=== PATIENT | female | born 1970 | race American Indian/Alaskan Native ===

== ENCOUNTER 2017-02-21 16:47 | Inpatient (IN) | payer MEDICAID, OTHER ==
[2017-02-21 18:17] LABS: Basophils % (Auto) 0.2 % (0.0-1.8); Eosinophils % (Auto) 0.5 % (0.0-4.3); Hematocrit 35.8 % (30.3-42.9); Hemoglobin 11.8 gm/dl (10.1-14.3); Mean Corpuscular HGB Conc 33 % (30-34); Mean Corpuscular Hemoglobin 31 pg (28-32); Mean Corpuscular Volume 93 fl (79-97); Platelet Count 297 K/mm3 (140-440); Red Blood Count 3.84 M/mm3 (3.65-5.03); Red Cell Distribution Width 15.8 % (13.2-15.2); White Blood Count 8.2 K/mm3 (4.5-11.0)
[2017-02-21 18:35] LABS: Anion Gap 20 mmol/L; BUN/Creatinine Ratio 15; Blood Urea Nitrogen 12 mg/dL (7-17); Calcium 9.3 mg/dL (8.4-10.2); Carbon Dioxide 28 mmol/L (22-30); Chloride 101.8 mmol/L (98-107); Glucose 124 mg/dL (65-100); Potassium 4.3 mmol/L (3.6-5.0); Sodium 145 mmol/L (137-145)
[2017-02-21] MEDS ORDERED: TYLENOL PO ONE (20:26)
[2017-02-21] MEDS ORDERED: COREG PO ONE (21:15)
[2017-02-21] MEDS ORDERED: ZESTRIL PO ONE (21:15)
[2017-02-21] MEDS ORDERED: NORVASC PO ONE (21:16)
[2017-02-21] MEDS ORDERED: NORMODYNE PO ONE (21:16)
[2017-02-21] MEDS ORDERED: CATAPRES PO ONE (21:17)
[2017-02-21] MEDS ORDERED: TENORMIN PO ONE (21:17)
--- NOTE | 2017-02-21 23:54 | XRay Report ---
FINAL REPORT PROCEDURE: XR CHEST 1V AP TECHNIQUE: Chest radiograph anteroposterior view. CPT 37353 HISTORY: cp, htn COMPARISON: No prior studies are available for comparison. FINDINGS: Heart: Moderate to severe cardiomegaly is noted. The cardiac outline is suggestive of pericardial effusion.. Mediastinum/Vessels: Normal. Lungs/Pleural space: Lungs are hyperinflated. There is moderate degree pulmonary venous congestion. No confluent infiltrates or mass lesions are obvious. Bilateral lower lungs are obscured by cardiac shadow.. Bony thorax: No acute osseous abnormality. Life support devices: None. IMPRESSION: Cardiomegaly with findings suggestive of pericardial effusion. Moderate degree pulmonary venous congestion..
--- NOTE | 2017-02-21 23:59 | Cat Scan Report ---
FINAL REPORT PROCEDURE: CT HEAD/BRAIN WO CON TECHNIQUE: Computerized tomography of the head was performed without contrast material. HISTORY: left arm numbness, htn COMPARISON: No prior studies are available for comparison. FINDINGS: Skull and scalp: Normal. Paranasal sinuses: Normal. Ventricles and subarachnoid spaces: Normal. Cerebrum: No evidence of hemorrhage, acute infarction or mass . Cerebellum and brainstem: No evidence of hemorrhage, acute infarction or mass. Vasculature: Normal. Comments: None. IMPRESSION: Normal Examination
--- NOTE | 2017-02-22 00:59 | Emergency Department Report ---
ED Chest Pain HPI - General Chief Complaint: Chest Pain Stated Complaint: CHEST PAIN Time Seen by Provider: 02/21/17 22:16 Source: patient, EMS, old records reviewed (no previous [facility] record) Mode of arrival: Stretcher Limitations: No Limitations - History of Present Illness Initial Comments: 46-year-old female with a past medical history of hypertension and CAD with stent placement presents to the hospital with complaints of chest pain or shortness of breath. Patient did not take her blood pressure medicine this morning because she was running around and performing errands. While shopping she developed some left arm numbness that then radiated to her anterior and left chest. She described it as a sharp sensation in her chest. Patient also having worsening shortness of breath with exertion, orthopnea, and PND. Patient received nitroglycerin 2 prior to arrival with some decrease in her chest pain. She denies headache, nausea, vomiting, or diaphoresis. Patient typically goes to [facility] and [facility] and has not been here since 2007 when she was transferred to [place] for her stent. She reports her last stress test was in 2015. No reports of recent travel, calf tenderness, or edema. Patient does complain of cough productive of yellow sputum and bilateral rib pain with coughing. Severity scale (0 -10): 0 - Related Data Allergies Allergy/AdvReac Type Severity Reaction Status Date / Time No Known Allergies Allergy Unverified 02/21/17 16:50 Heart Score - HEART Score History: Slightly suspicious EKG: Non-specific Age: 45-65 Risk factors: > 3 risk factors or hx of atherosclerotic disease Troponin: < normal limit HEART Score: 4 ED Review of Systems ROS: Stated complaint: CHEST PAIN Other details as noted in HPI Comment: All other systems reviewed and negative Other: Constitutional: No fevers chills Eyes: No eye pain visual changes ENT: No ear pain or throat pain Neck: Denies pain Respiratory: + cough with yellow sputum Cardiovascular: Denies palpitations, syncope GI: Denies abdominal pain, nausea, vomiting, diarrhea : Denies dysuria Musculoskeletal: Denies back pain Skin: Denies rash, lesions, erythema Neurologic: Denies headache, numbness, weakness Psychiatric: Denies suicidal ideation, hallucinations ED Physical Exam - General Limitations: No Limitations - Other Other exam information: General: No limitations, patient is alert in no acute distress Head exam: Atraumatic, normocephalic Eyes exam: Normal appearanc ENT: Moist mucous membrane, normal oropharynx Neck exam: Normal inspection, full range of motion, no meningismus nontender Respiratory exam: Clear to auscultation bilateral, no wheezes, rales, crackles Cardiovascular: Normal rate and rhythm. Reproducible left sternal chest tenderness Abdomen: Soft, nondistended, and nontender, with normal bowel sounds, no rebound, or guarding Extremity: Full range of motion normal inspection no deformity, no calf tenderness or edema Back: Normal Inspection, full range of motion, no tenderness Neurologic: Alert, oriented x3, cranial nerves intact, see NIH stroke scale Psychiatric: normal affect, normal mood Skin: Warm, dry, intact ED Course Vital Signs 02/21/17 02/21/17 02/21/17 16:55 18:07 20:30 Temperature 98.1 F Pulse Rate 90 98 H Respiratory 18 18 18 Rate Blood Pressure Blood Pressure 190/120 240/127 [Right] O2 Sat by Pulse 100 98 Oximetry 02/21/17 02/21/17 02/21/17 22:16 22:23 22:24 Temperature 98 F Pulse Rate 85 70 70 Respiratory 18 Rate Blood Pressure 190/118 190/118 Blood Pressure 190/118 [Right] O2 Sat by Pulse 100 Oximetry 02/22/17 00:39 Temperature 98 F Pulse Rate 60 Respiratory 18 Rate Blood Pressure Blood Pressure 144/85 [Right] O2 Sat by Pulse 99 Oximetry - Reevaluation(s) Reevaluation #1: 02/22/17 01:22 pt was provided her scheduled meds for her BP with reduction in BP. ASA also given. TRAVIS score - Travis Score Age > 65: (0) No Aspirin use within the Past 7 Days: (1) Yes 3 or more CAD Risk Factors: (1) Yes 2 or more Angina events in past 24 hrs: (1) Yes Known CAD with more than 50% Stenosis: (0) No Elevated Cardiac Markers: (0) No ST Deviation Greater than 0.5mm: (0) No TRAVIS Score: 3 ED Medical Decision Making - Lab Data Result diagrams: 02/21/17 17:46 02/21/17 17:46 Lab Results 02/21/17 02/21/17 02/21/17 Range/Units 17:46 17:46 20:03 WBC 8.2 (4.5-11.0) K/mm3 RBC 3.84 (3.65-5.03) M/mm3 Hgb 11.8 (10.1-14.3) gm/dl Hct 35.8 (30.3-42.9) % MCV 93 (79-97) fl MCH 31 (28-32) pg MCHC 33 (30-34) % RDW 15.8 H (13.2-15.2) % Plt Count 297 (140-440) K/mm3 Lymph % (Auto) 37.5 H (13.4-35.0) % [place] % (Auto) 8.4 H (0.0-7.3) % Eos % (Auto) 0.5 (0.0-4.3) % Baso % (Auto) 0.2 (0.0-1.8) % Lymph # 3.1 (1.2-5.4) K/mm3 [place] # 0.7 (0.0-0.8) K/mm3 Eos # 0.0 (0.0-0.4) K/mm3 Baso # 0.0 (0.0-0.1) K/mm3 Seg Neutrophils % 53.4 (40.0-70.0) % Seg Neutrophils # 4.4 (1.8-7.7) K/mm3 Sodium 145 (137-145) mmol/L Potassium 4.3 (3.6-5.0) mmol/L Chloride 101.8 (98-107) mmol/L Carbon Dioxide 28 (22-30) mmol/L Anion Gap 20 mmol/L BUN 12 (7-17) mg/dL Creatinine 0.8 (0.7-1.2) mg/dL Estimated GFR > 60 ml/min BUN/Creatinine Ratio 15 % Glucose 124 H (65-100) mg/dL Calcium 9.3 (8.4-10.2) mg/dL Troponin T < 0.010 < 0.010 (0.00-0.029) ng/mL 02/21/17 Range/Units 22:52 WBC (4.5-11.0) K/mm3 RBC (3.65-5.03) M/mm3 Hgb (10.1-14.3) gm/dl Hct (30.3-42.9) % MCV (79-97) fl MCH (28-32) pg MCHC (30-34) % RDW (13.2-15.2) % Plt Count (140-440) K/mm3 Lymph % (Auto) (13.4-35.0) % [place] % (Auto) (0.0-7.3) % Eos % (Auto) (0.0-4.3) % Baso % (Auto) (0.0-1.8) % Lymph # (1.2-5.4) K/mm3 [place] # (0.0-0.8) K/mm3 Eos # (0.0-0.4) K/mm3 Baso # (0.0-0.1) K/mm3 Seg Neutrophils % (40.0-70.0) % Seg Neutrophils # (1.8-7.7) K/mm3 Sodium (137-145) mmol/L Potassium (3.6-5.0) mmol/L Chloride (98-107) mmol/L Carbon Dioxide (22-30) mmol/L Anion Gap mmol/L BUN (7-17) mg/dL Creatinine (0.7-1.2) mg/dL Estimated GFR ml/min BUN/Creatinine Ratio % Glucose (65-100) mg/dL Calcium (8.4-10.2) mg/dL Troponin T 0.022 (0.00-0.029) ng/mL - EKG Data -: EKG Interpreted by Fl EKG shows normal: sinus rhythm (90), axis (29), QRS complexes (107), ST-T waves (lat t inv) - EKG Data When compared to previous EKG there are: previous EKG unavailable - Radiology Data Radiology results: report reviewed Read by radiology Chest x-ray: Cardiomegaly suggestive of pericardial effusion. Moderate degree of pulmonary venous congestion CT head: Normal - Medical Decision Making Patient's chest pain is reproducible with palpation. Cardiac enzymes negative 3. Chest x-ray has Pulmicort congestion with cardiomegaly suggestive of potential pericardial effusion - Differential Diagnosis CHF, bronchitis, pneumonia, PE, pericardial effusion, AR, stable angina Critical Care Time: No Critical care attestation.: If time is entered above; I have spent that time in minutes in the direct care of this critically ill patient, excluding procedure time. ED Disposition Clinical Impression: Uncontrolled hypertension, Noncompliance with medication regimen, Dyspnea, Pulmonary congestion, Chest pain, Left arm numbness, Cardiomegaly, Hx of heart artery stent Disposition: DC-09 OP ADMIT IP TO THIS HOSP Is pt being admited?: Yes Condition: Stable Time of Disposition: 00:59 (Dr casper/hosp) - Assessment Assessment Interval: Baseline - Level of Consciousness 1a. Level of Consciousness: alert - LOC Questions 1b. LOC Questions: answers correctly - LOC Command 1c. LOC Commands: performs tasks correctly - Best Gaze 2. Best Gaze: normal - Visual 3. Visual: no visual loss - Facial Palsy 4. Facial Palsy: normal symmetrical movement - Motor Arm 5b. Motor Arm Right: no drift 5a. Motor Arm Left: no drift - Motor Leg 6a. Motor Leg Left: no drift 6b. Motor Leg Right: no drift - Limb Ataxia 7. Limb Ataxia: absent - Sensory 8. Sensory: mild/moderate sensory loss (mild decrease sesation left arm compared to right (light touch)) - Best Language 9. Best Language: no aphasia - Dysarthria 10. Dysarthria: normal - Extinction and Inattention 11. Extinction/Inattention: no abnormality - Scoring Total Score: 1 Stroke Severity: Minor Stroke
[2017-02-22] MEDS ORDERED: ASPIRIN PO ONE (01:23)
[2017-02-22 06:41] LABS: Creatine Kinase MB 35.9 ng/mL (0.0-4.0)
[2017-02-22] MEDS ORDERED: FLEXERIL PO PRN (06:55)
--- NOTE | 2017-02-22 09:25 | History and Physical Report ---
<SOPHIE CALL - Last Filed: 02/22/17 12:06> History of Present Illness Date of examination: 02/22/17 Date of admission: 02/22/17 05:17 Chief complaint: Chest pain History of present illness: Patient is a 46 years old of hypertension, coronary artery disease and cardiomyopathy who presented to the Emergency Department complaining of left side chest pain. He states that the pain began yesterday around 3:00PM, after eating dinner, constant left-side chest pain. Patient described the pain as, sharp, pressure and squeezing in her chest; that radiates to the left arm and shoulder.The sharp pain lasted around 1 minute. There is no aggravating or reliving factors. The painful episodes did not increase in intensity or severity during this time. Patient rated her pain level 9/10. She denies nausea, vomiting during these episodes of pain. She experienced shortness of breath, nausea, and diaphoresis during these episodes of pain. She continued to have several episodes of the pain throughout the morning, she decided to come to the emergency department. She had negative stress test a year ago with [place] [facility]. Past History Past Medical History: CAD, hypertension, other ( cardiomyopathy) Past Surgical History: denies: No surgical history Social history: smoking. denies: alcohol abuse Family history: hypertension Medications and Allergies Allergies Allergy/AdvReac Type Severity Reaction Status Date / Time No Known Allergies Allergy Unverified 02/21/17 16:50 Home Medications Medication Instructions Recorded Confirmed Last Taken Type Aspirin 81 mg PO DAILY 02/22/17 02/22/17 Unknown History AtorvaSTATin [Lipitor] 40 mg PO QHS 02/22/17 02/22/17 Unknown History Carvedilol 25 mg PO DAILY 02/22/17 02/22/17 Unknown History Cyclobenzaprine [Flexeril] 10 mg PO TID PRN 02/22/17 02/22/17 Unknown History Furosemide [Lasix] 40 mg PO BID 02/22/17 02/22/17 1 Day Ago History ~02/21/17 40mg Lisinopril [Zestril] 40 mg PO DAILY 02/22/17 02/22/17 Unknown History amLODIPine [Norvasc] 10 mg PO DAILY 02/22/17 02/22/17 Unknown History cloNIDine [Catapres] 0.1 mg PO BID 02/22/17 02/22/17 Unknown History Active Meds: Active Medications Amlodipine Besylate (Norvasc) 10 mg PO DAILY [facility] Aspirin (Baby Aspirin) 81 mg PO DAILY [facility] Atorvastatin Calcium (Lipitor) 40 mg PO QHS [facility] Carvedilol (Coreg) 25 mg PO DAILY [facility] Cyclobenzaprine HCl (Flexeril) 10 mg PO TID PRN PRN Reason: Muscle Spasm Furosemide (Lasix) 40 mg PO BID [facility] Lisinopril (Zestril) 40 mg PO DAILY [facility] Review of Systems Constitutional: no fever, no chills Ears, nose, mouth and throat: no nasal congestion, no nasal discharge, no sinus pressure Breasts: no change in shape, no swelling Cardiovascular: chest pain, shortness of breath, dyspnea on exertion, no edema, no syncope Respiratory: shortness of breath, dyspnea on exertion, no excessive sputum, no hemoptysis Gastrointestinal: no diarrhea, no constipation, no change in bowel habits Genitourinary Female: no flank pain, no dysuria, no urinary frequency Rectal: no incontinence, no bleeding Musculoskeletal: no shooting arm pain, no arm numbness/tingling, no low back pain Integumentary: no pruritis, no redness, no sores Neurological: no paralysis, no weakness, no parathesias Psychiatric: no memory loss, no change in sleep habits, no sleep disturbances Endocrine: no polyuria, no nocturia, no excessive sweating Hematologic/Lymphatic: no easy bruising, no easy bleeding Allergic/Immunologic: no urticaria, no allergic rhinitis Exam - Constitutional Vitals: Temp Pulse Resp BP Pulse Ox 98.7 F 70 18 144/76 100 02/22/17 07:16 02/22/17 07:16 02/22/17 07:16 02/22/17 07:16 02/22/17 07:16 General appearance: Present: no acute distress - EENT Eyes: Present: PERRL ENT: hearing intact - Neck Neck: Present: supple - Respiratory Respiratory effort: normal Respiratory: bilateral: CTA - Cardiovascular Rhythm: regular Heart Sounds: Present: S1 & S2 - Abdominal General gastrointestinal: Present: soft, non-tender Female genitourinary: Present: deferred - Rectal Rectal Exam: deferred - Integumentary Integumentary: Present: clear, warm, dry - Musculoskeletal Musculoskeletal: strength equal bilaterally - Psychiatric Psychiatric: appropriate mood/affect - Neurologic Neurologic: CNII-XII intact - Allied Health Allied health notes reviewed: nursing Results - Labs CBC & Chem 7: 02/21/17 17:46 02/21/17 17:46 Labs: Laboratory Last Values WBC 8.2 K/mm3 (4.5-11.0) 02/21/17 17:46 RBC 3.84 M/mm3 (3.65-5.03) 02/21/17 17:46 Hgb 11.8 gm/dl (10.1-14.3) 02/21/17 17:46 Hct 35.8 % (30.3-42.9) 02/21/17 17:46 MCV 93 fl (79-97) 02/21/17 17:46 MCH 31 pg (28-32) 02/21/17 17:46 MCHC 33 % (30-34) 02/21/17 17:46 RDW 15.8 % (13.2-15.2) H 02/21/17 17:46 Plt Count 297 K/mm3 (140-440) 02/21/17 17:46 Lymph % (Auto) 37.5 % (13.4-35.0) H 02/21/17 17:46 [place] % (Auto) 8.4 % (0.0-7.3) H 02/21/17 17:46 Eos % (Auto) 0.5 % (0.0-4.3) 02/21/17 17:46 Baso % (Auto) 0.2 % (0.0-1.8) 02/21/17 17:46 Lymph # 3.1 K/mm3 (1.2-5.4) 02/21/17 17:46 [place] # 0.7 K/mm3 (0.0-0.8) 02/21/17 17:46 Eos # 0.0 K/mm3 (0.0-0.4) 02/21/17 17:46 Baso # 0.0 K/mm3 (0.0-0.1) 02/21/17 17:46 Seg Neutrophils % 53.4 % (40.0-70.0) 02/21/17 17:46 Seg Neutrophils # 4.4 K/mm3 (1.8-7.7) 02/21/17 17:46 Sodium 145 mmol/L (137-145) 02/21/17 17:46 Potassium 4.3 mmol/L (3.6-5.0) 02/21/17 17:46 Chloride 101.8 mmol/L (98-107) 02/21/17 17:46 Carbon Dioxide 28 mmol/L (22-30) 02/21/17 17:46 Anion Gap 20 mmol/L 02/21/17 17:46 BUN 12 mg/dL (7-17) 02/21/17 17:46 Creatinine 0.8 mg/dL (0.7-1.2) 02/21/17 17:46 Estimated GFR > 60 ml/min 02/21/17 17:46 BUN/Creatinine Ratio 15 % 02/21/17 17:46 Glucose 124 mg/dL (65-100) H 02/21/17 17:46 Calcium 9.3 mg/dL (8.4-10.2) 02/21/17 17:46 Total Creatine Kinase 837 units/L (30-135) H 02/22/17 05:54 CK-MB (CK-2) 35.9 ng/mL (0.0-4.0) H 02/22/17 05:54 CK-MB (CK-2) Rel Index 4.2 (0-4) H 02/22/17 05:54 Troponin T 0.022 ng/mL (0.00-0.029) 02/21/17 22:52 - Imaging and Cardiology Chest x-ray: image reviewed (cardiomegaly. Pericardial effusion) Assessment and Plan Assessment and plan: Patient is a 46 years old of hypertension, coronary artery disease and cardiomyopathy who presented to the Emergency Department complaining of left side chest pain. He states that the pain began yesterday around 3:00PM, after eating dinner, constant left-side chest pain. Chest Pain We will admit to telemetry floor. EKG normal sinus,no ST elevation or T-wave inversion. Negative cardiac enzyme X3 Start on aspirin Nitroglycerin when necessary Morphine ordered for pain Stress test ordered. We will obtain echocardiogram as long as long as long Uncontrolled Hypertension Resume home antihypertensive medication IV hydralazine for SBP>160 Closely monitor blood pressure Rhabdomyolysis Started on IV fluid hydration Closely monitor CK Coronary artery disease Resume on Statnis Hx of Cardiomyopathy We'll obtain Echocardiogram Tobacco abuse Smoking cessation counseling done. Patient strongly advised to quit. Morbid Obesity BMI>45 Patient advice about weight reduction and healthy lifestyle change DVT prophylaxis Lovenox Advance Directives: Yes VTE prophylaxis?: Chemical Contraindication Mechanical VTE Prophylaxis: Treatment Not Indicated Plan of care discussed with patient/family: Yes <KINGSLEY JACKSON - Last Filed: 02/22/17 15:21> History of Present Illness Date of admission: 02/22/17 05:17 Medications and Allergies Active Meds: Active Medications Amlodipine Besylate (Norvasc) 10 mg PO DAILY [facility] Aspirin (Baby Aspirin) 81 mg PO DAILY [facility] Atorvastatin Calcium (Lipitor) 40 mg PO QHS [facility] Carvedilol (Coreg) 25 mg PO DAILY [facility] Cyclobenzaprine HCl (Flexeril) 10 mg PO TID PRN PRN Reason: Muscle Spasm Furosemide (Lasix) 40 mg PO BID [facility] Sodium Chloride (Nacl 0.9% 1000 Ml) 1,000 mls @ 75 mls/hr IV DIRECT [facility] Lisinopril (Zestril) 40 mg PO DAILY [facility] Exam - Constitutional Vitals: Temp Pulse Resp BP Pulse Ox 98.7 F 65 16 135/69 100 02/22/17 07:16 02/22/17 11:15 02/22/17 10:24 02/22/17 11:15 02/22/17 10:24 Results - Labs CBC & Chem 7: 02/21/17 17:46 02/21/17 17:46 Labs: Laboratory Last Values WBC 8.2 K/mm3 (4.5-11.0) 02/21/17 17:46 RBC 3.84 M/mm3 (3.65-5.03) 02/21/17 17:46 Hgb 11.8 gm/dl (10.1-14.3) 02/21/17 17:46 Hct 35.8 % (30.3-42.9) 02/21/17 17:46 MCV 93 fl (79-97) 02/21/17 17:46 MCH 31 pg (28-32) 02/21/17 17:46 MCHC 33 % (30-34) 02/21/17 17:46 RDW 15.8 % (13.2-15.2) H 02/21/17 17:46 Plt Count 297 K/mm3 (140-440) 02/21/17 17:46 Lymph % (Auto) 37.5 % (13.4-35.0) H 02/21/17 17:46 [place] % (Auto) 8.4 % (0.0-7.3) H 02/21/17 17:46 Eos % (Auto) 0.5 % (0.0-4.3) 02/21/17 17:46 Baso % (Auto) 0.2 % (0.0-1.8) 02/21/17 17:46 Lymph # 3.1 K/mm3 (1.2-5.4) 02/21/17 17:46 [place] # 0.7 K/mm3 (0.0-0.8) 02/21/17 17:46 Eos # 0.0 K/mm3 (0.0-0.4) 02/21/17 17:46 Baso # 0.0 K/mm3 (0.0-0.1) 02/21/17 17:46 Seg Neutrophils % 53.4 % (40.0-70.0) 02/21/17 17:46 Seg Neutrophils # 4.4 K/mm3 (1.8-7.7) 02/21/17 17:46 Sodium 145 mmol/L (137-145) 02/21/17 17:46 Potassium 4.3 mmol/L (3.6-5.0) 02/21/17 17:46 Chloride 101.8 mmol/L (98-107) 02/21/17 17:46 Carbon Dioxide 28 mmol/L (22-30) 02/21/17 17:46 Anion Gap 20 mmol/L 02/21/17 17:46 BUN 12 mg/dL (7-17) 02/21/17 17:46 Creatinine 0.8 mg/dL (0.7-1.2) 02/21/17 17:46 Estimated GFR > 60 ml/min 02/21/17 17:46 BUN/Creatinine Ratio 15 % 02/21/17 17:46 Glucose 124 mg/dL (65-100) H 02/21/17 17:46 Calcium 9.3 mg/dL (8.4-10.2) 02/21/17 17:46 Total Creatine Kinase 837 units/L (30-135) H 02/22/17 05:54 CK-MB (CK-2) 35.9 ng/mL (0.0-4.0) H 02/22/17 05:54 CK-MB (CK-2) Rel Index 4.2 (0-4) H 02/22/17 05:54 Troponin T 0.022 ng/mL (0.00-0.029) 02/21/17 22:52 Assessment and Plan Assessment and plan: I saw and evaluated the patient. I agree with the findings and the plan of care as documented in the Nurse Practitioner's~note, with the following corrections and additions. Chest pain is none reproducible. Will add Beta ko and follow up with stress test result
--- NOTE | 2017-02-22 09:48 | Consultation ---
History of Present Illness Consult date: 02/22/17 Consult reason: chest pain History of present illness: This is a 46yr old woman who reports a remote history of coronary artery disease and cardiomyopathy. She also continues to smoke. Patient reports she is followed on a routine basis by her airline mechanic in [facility]. Her most recent cardiac workup was a stress test done a year ago the patient reports as normal. She was brought to this hospital with complaints of chest pain and shortness of breath associated with left arm pain. There was no palpitations or dizziness. She denies exertional chest pain. Noted a blood pressure of 240/127 while in the ED. Head CT reports no acute intracranial process. Chest x-ray reports at least moderate cardiomegaly with venous congestion. Cardiology consultation was requested for further evaluation. Medications and Allergies Allergies Allergy/AdvReac Type Severity Reaction Status Date / Time No Known Allergies Allergy Unverified 02/21/17 16:50 Home Medications Medication Instructions Recorded Confirmed Last Taken Type Aspirin 81 mg PO DAILY 02/22/17 02/22/17 Unknown History AtorvaSTATin [Lipitor] 40 mg PO QHS 02/22/17 02/22/17 Unknown History Carvedilol 25 mg PO DAILY 02/22/17 02/22/17 Unknown History Cyclobenzaprine [Flexeril] 10 mg PO TID PRN 02/22/17 02/22/17 Unknown History Furosemide [Lasix] 40 mg PO BID 02/22/17 02/22/17 1 Day Ago History ~02/21/17 40mg Lisinopril [Zestril] 40 mg PO DAILY 02/22/17 02/22/17 Unknown History amLODIPine [Norvasc] 10 mg PO DAILY 02/22/17 02/22/17 Unknown History cloNIDine [Catapres] 0.1 mg PO BID 02/22/17 02/22/17 Unknown History Active Meds: Active Medications Amlodipine Besylate (Norvasc) 10 mg PO DAILY [facility] Aspirin (Baby Aspirin) 81 mg PO DAILY [facility] Atorvastatin Calcium (Lipitor) 40 mg PO QHS [facility] Carvedilol (Coreg) 25 mg PO DAILY [facility] Cyclobenzaprine HCl (Flexeril) 10 mg PO TID PRN PRN Reason: Muscle Spasm Furosemide (Lasix) 40 mg PO BID [facility] Lisinopril (Zestril) 40 mg PO DAILY [facility] Physical Examination Vital Signs Pulse Resp BP Pulse Ox 90 18 190/120 100 02/21/17 16:55 02/21/17 16:55 02/21/17 16:55 02/21/17 16:55 General appearance: no acute distress, obese HEENT: Positive: PERRL Cardiac: Positive: Reg Rate and Rhythm Lungs: Positive: Decreased Breath Sounds Neuro: Positive: Grossly Intact Results 02/21/17 17:46 02/21/17 17:46 Cardiac Enzymes 02/22/17 Range/Units 05:54 CK-MB (CK-2) 35.9 H (0.0-4.0) ng/mL CBC 02/21/17 Range/Units 17:46 WBC 8.2 (4.5-11.0) K/mm3 RBC 3.84 (3.65-5.03) M/mm3 Hgb 11.8 (10.1-14.3) gm/dl Hct 35.8 (30.3-42.9) % Plt Count 297 (140-440) K/mm3 Lymph # 3.1 (1.2-5.4) K/mm3 [place] # 0.7 (0.0-0.8) K/mm3 Eos # 0.0 (0.0-0.4) K/mm3 Baso # 0.0 (0.0-0.1) K/mm3 Comprehensive Metabolic Panel 02/21/17 Range/Units 17:46 Sodium 145 (137-145) mmol/L Potassium 4.3 (3.6-5.0) mmol/L Chloride 101.8 (98-107) mmol/L Carbon Dioxide 28 (22-30) mmol/L BUN 12 (7-17) mg/dL Creatinine 0.8 (0.7-1.2) mg/dL Glucose 124 H (65-100) mg/dL Calcium 9.3 (8.4-10.2) mg/dL Assessment and Plan Chest pain Hypertension -uncontrolled Hx of CAD Hx of Cardiomyopathy Tobacco abuse Obesity We will get an echocardiogram and thallium stress test for further cardiac evaluation.
[2017-02-22] MEDS: NORVASC PO SCH (10:00)
[2017-02-22] MEDS: ZESTRIL PO SCH (10:00)
[2017-02-22] MEDS: COREG PO SCH (10:00)
[2017-02-22] MEDS ORDERED: LASIX PO SCH (10:00)
[2017-02-22] MEDS ORDERED: CATAPRES PO SCH (10:00)
[2017-02-22] MEDS ORDERED: LEXISCAN IV ONE (12:00)
[2017-02-22] MEDS ORDERED: NACL 0.9% 1000 ML 1,000 ML IV SCH (12:00)
[2017-02-22] MEDS ORDERED: LASIX IV ONE (18:40)
[2017-02-22] MEDS: DUONEB *Not for PRN Use IH SCH (19:20)
[2017-02-22] MEDS: LASIX IV SCH (19:26)
--- NOTE | 2017-02-23 00:39 | Treadmill Report ---
INDICATION: Chest pain. ORDERING PHYSICIAN: Abdirizak Arriaga MD FINDINGS: The left ventricular cavity is dilated. There is evidence of a moderate sized fixed anterior wall defect suggesting prior myocardial infarction in the LAD distribution. Gated imaging reveals severe global left ventricular hypokinesis with poor uptake noted in the anterior wall. The left ventricular ejection fraction is measured at 26%. IMPRESSION: 1. This is a high risk myocardial perfusion scan associated with a 1-year cardiovascular mortality of greater than 3%. 2. Dilated and hypokinetic left ventricle with an ejection fraction measuring 26%. 3. Moderate sized fixed anterior wall defect consistent with prior myocardial infarction in LAD distribution. 4. No scintigraphic evidence of myocardial ischemia. JOB# [id number] MILI/LEXIE
[2017-02-23] MEDS: DUONEB *Not for PRN Use IH SCH ×4 (02:18→21:01)
[2017-02-23] MEDS: TESSALON PERLES PO SCH ×3 (05:24→21:14)
[2017-02-23] MEDS: APRESOLINE IV PRN (05:29)
[2017-02-23] MEDS: LASIX IV SCH ×2 (05:37→18:28)
[2017-02-23] MEDS ORDERED: LASIX IV SCH (06:00)
--- NOTE | 2017-02-23 10:31 | Progress Note ---
Assessment and Plan Chest pain, atypical MPI showing a fixed anterior wall defect consistent with PR and LVEF 26%, no ischemia Acute on chronic systolic heart failure Hypertension Hx of CAD Hx of Ischemic Cardiomyopathy Echocardiogram reports a moderate pericardial effusion, EF 35-45%. Tobacco abuse Morbid obesity Recommendations: Continue IV diuresis, afterload reduction, beta blockers for systolic heart failure. Medical therapy for coronary artery disease. Subjective Date of service: 02/23/17 Interval history: Patient denies chest pain. Reports her breathing is better. Objective Vital Signs Temp Pulse Pulse Resp Resp BP Pulse Ox 02/23/17 08:11 98.3 F 72 22 150/76 100 02/23/17 05:29 70 183/92 02/23/17 04:30 98.1 F 70 18 183/92 98 02/23/17 02:27 70 20 02/23/17 02:17 71 20 02/22/17 23:07 98.5 F 74 18 174/96 97 02/22/17 22:22 70 02/22/17 22:00 20 02/22/17 19:30 98.2 F 64 18 155/88 100 02/22/17 19:20 75 22 02/22/17 19:10 72 20 02/22/17 17:35 98.5 F 67 24 154/94 99 02/22/17 11:15 65 135/69 02/22/17 11:13 65 129/69 02/22/17 11:12 67 122/82 02/22/17 11:11 68 122/82 02/22/17 11:10 71 144/79 02/22/17 11:01 57 L 112/72 - Physical Examination General: No Apparent Distress HEENT: Positive: PERRL Cardiac: Positive: Reg Rate and Rhythm Lungs: Positive: Decreased Breath Sounds Neuro: Positive: Grossly Intact
[2017-02-23] MEDS: COREG PO SCH (10:52)
[2017-02-23] MEDS: BABY ASPIRIN PO SCH (10:52)
[2017-02-23] MEDS: NORVASC PO SCH (10:54)
[2017-02-23] MEDS: ZESTRIL PO SCH (10:55)
--- NOTE | 2017-02-23 14:52 | Progress Note ---
Assessment and Plan Patient is a 46 years old of hypertension, coronary artery disease and cardiomyopathy who presented to the Emergency Department complaining of left side chest pain. He states that the pain began yesterday around 3:00PM, after eating dinner, constant left-side chest pain. - Chest Pain EKG normal sinus,no ST elevation or T-wave inversion. Negative cardiac enzyme X3 Continue with, beta ko, ASA. NTG and morphine MPI showing a fixed anterior wall defect consistent with [place] and LVEF 26%, no ischemia - Hypertension: controlled Continue with home antihypertensive medication IV hydralazine for SBP>160 Closely monitor blood pressure - Rhabdomyolysis Started on IV fluid hydration Closely monitor CK - Coronary artery disease Resume on Statnis - Hx of Cardiomyopathy Echocardiogram showed 35-45% LVEF with LV dysfunction Continue IV diuresis, afterload reduction, beta blockers for systolic heart failure. - Tobacco abuse Smoking cessation counseling done. Patient strongly advised to quit. - Morbid Obesity BMI>45 Patient advice about weight reduction and healthy lifestyle change DVT prophylaxis Lovenox Advance Directives: Yes VTE prophylaxis?: Chemical Subjective Date of service: 02/23/17 Principal diagnosis: chest pain Interval history: still having chest pain Objective - Constitutional Vitals: Vital Signs - 12hr 02/23/17 02/23/17 02/23/17 04:30 05:29 08:11 Temperature 98.1 F 98.3 F Pulse Rate 70 70 72 Respiratory 18 22 Rate Blood Pressure 183/92 183/92 150/76 O2 Sat by Pulse 98 100 Oximetry 02/23/17 02/23/17 02/23/17 10:52 10:54 10:55 Temperature Pulse Rate 72 72 72 Respiratory Rate Blood Pressure 150/76 150/76 150/76 O2 Sat by Pulse Oximetry 02/23/17 11:55 Temperature 98.3 F Pulse Rate 68 Respiratory 20 Rate Blood Pressure 136/69 O2 Sat by Pulse 95 Oximetry General appearance: Present: no acute distress - EENT Eyes: PERRL ENT: hearing intact, clear oral mucosa - Neck Neck: supple, normal ROM - Respiratory Respiratory effort: normal Respiratory: bilateral: CTA - Cardiovascular Rhythm: regular Heart Sounds: Present: S1 & S2. Absent: gallop, rub Extremities: pulses intact, No edema, normal color, Full ROM - Gastrointestinal General gastrointestinal: Present: soft, non-tender, non-distended, normal bowel sounds - Integumentary Integumentary: clear, warm, dry - Musculoskeletal Musculoskeletal: 1, strength equal bilaterally - Neurologic Neurologic: moves all extremities - Psychiatric Psychiatric: memory intact, appropriate mood/affect, intact judgment & insight - Labs CBC & Chem 7: 02/21/17 17:46 02/21/17 17:46 Labs: Abnormal lab results 02/23/17 Range/Units 04:55 Total Creatine Kinase 848 H (30-135) units/L
[2017-02-24] MEDS: APRESOLINE IV PRN (00:54)
[2017-02-24] MEDS: DUONEB *Not for PRN Use IH SCH ×2 (02:00→07:35)
[2017-02-24] MEDS: LASIX IV SCH (05:15)
[2017-02-24] MEDS: TESSALON PERLES PO SCH (05:15)
[2017-02-24] MEDS ORDERED: PROVENTIL IH PRN (07:40)
[2017-02-24] MEDS: BABY ASPIRIN PO SCH (08:59)
[2017-02-24] MEDS: NORVASC PO SCH (08:59)
[2017-02-24 09:00] VITALS: BP 169/94
[2017-02-24] MEDS: COREG PO SCH (09:00)
[2017-02-24] MEDS: ZESTRIL PO SCH (09:00)
--- NOTE | 2017-02-24 10:28 | Progress Note ---
Assessment and Plan Chest pain, atypical MPI showing a fixed anterior wall defect consistent with [place] and LVEF 26%, no ischemia Acute on chronic systolic heart failure Hypertension Hx of CAD Hx of Ischemic Cardiomyopathy Echocardiogram reports a small to moderate pericardial effusion, EF 35-45%. Tobacco abuse Morbid obesity Recommendations: Medical therapy for systolic heart failure and coronary artery disease. Once, discharge pt advised to f/u with her primary hospice music therapy in [facility]. Subjective Date of service: 02/24/17 Principal diagnosis: chest pain Interval history: Patient denies chest pain. Reports her breathing is better. Objective Vital Signs Temp Pulse Pulse Resp Resp BP Pulse Ox 02/24/17 09:00 169/94 02/24/17 08:59 169/94 02/24/17 07:49 76 20 02/24/17 07:39 97 02/24/17 07:36 82 20 02/24/17 04:17 98.4 F 74 18 167/73 99 02/24/17 02:06 75 16 02/24/17 01:55 72 18 02/24/17 01:00 78 02/24/17 00:54 69 177/89 02/24/17 00:07 98.1 F 63 18 177/89 96 02/23/17 20:23 73 20 02/23/17 20:13 74 20 02/23/17 20:03 98.4 F 70 18 149/77 97 02/23/17 13:30 69 20 02/23/17 13:20 58 L 20 02/23/17 11:55 98.3 F 68 20 136/69 95 02/23/17 10:55 72 150/76 02/23/17 10:54 72 150/76 02/23/17 10:52 72 150/76 - Physical Examination General: No Apparent Distress HEENT: Positive: PERRL Cardiac: Positive: Reg Rate and Rhythm Lungs: Positive: Decreased Breath Sounds Neuro: Positive: Grossly Intact
--- NOTE | 2017-02-24 12:05 | Discharge Summary ---
Providers - Providers Date of Admission: 02/22/17 05:17 Attending physician: SHARMILA ZEPEDA MD 02/22/17 06:54 Consult to Physician [CONS] Routine Consulting Provider: ANGELIQUE COMER Reason For Exam: chest pain, CAD Place consult to:: Mamadou De León Notified:: yes Phone number called:: face to face Was contact made?: Yes If yes, spoke with:: Mamadou Time called:: 08:50 Primary care physician: AURE JACOB Hospitalization Condition: Stable Hospital course: Patient is a 46 years old of hypertension, coronary artery disease and systolic CHF who presents with shortness of breath orthopnea and dyspnea on exertion. She was admitted to the hospital she went on to have an MPI that did not show any reversible ischemia. Her echo confirmed decreased EF of 35%. She was seen in conjunction with cardiology. She received IV diuresis , afterload reduction, beta ko. She clinically improved. She was counseled on tobacco cessation and weight loss. Her blood pressure medications and optimize hypertensive urgency. Discharge diagnosis Chest pain due to systolic CHF exacerbation Acute exacerbation of systolic CHF Acute respiratory failure Hypertensive urgency Coronary artery disease Tobacco abuse Morbid obesity - Disposition: DC-01 TO HOME OR SELFCARE Time spent for discharge: 33 minutes Core Measure Documentation - Palliative Care Palliative Care/ Comfort Measures: Not Applicable - Core Measures Any of the following diagnoses?: heart failure - Heart Failure Discharge Requirements JUAN MANUEL/ARB for LVSD if EF <40%: Yes Beta ko at discharge: Yes Exam - Constitutional Vitals: Temp Pulse Resp BP Pulse Ox 98.4 F 76 20 169/94 97 02/24/17 04:17 02/24/17 07:49 02/24/17 07:49 02/24/17 09:00 02/24/17 07:39 General appearance: Present: no acute distress, well-nourished - EENT Eyes: Present: PERRL ENT: hearing intact, clear oral mucosa - Neck Neck: Present: supple, normal ROM - Respiratory Respiratory effort: normal Respiratory: bilateral: CTA - Cardiovascular Heart Sounds: Present: S1 & S2. Absent: rub, click - Extremities Extremities: pulses symmetrical, No edema Peripheral Pulses: within normal limits - Abdominal General gastrointestinal: Present: soft, non-tender, non-distended, normal bowel sounds Female genitourinary: Present: normal - Integumentary Integumentary: Present: clear, warm, dry - Musculoskeletal Musculoskeletal: gait normal, strength equal bilaterally - Psychiatric Psychiatric: appropriate mood/affect, intact judgment & insight - Neurologic Neurologic: CNII-XII intact, moves all extremities Plan Follow up with: ISAIAH AHMADI MD [Referring] - 7 Days AURE JACOB MD [Primary Care Provider] - 7 Days Prescriptions: AtorvaSTATin [Lipitor] 40 mg PO QHS #30 tablet amLODIPine [Norvasc] 10 mg PO DAILY #30 tablet Aspirin 81 mg PO DAILY #60 tab.chew Carvedilol [Coreg] 12.5 mg PO BID #60 tablet Cyclobenzaprine [Flexeril 10 MG TAB] 10 mg PO TID PRN #30 tablet PRN Reason: Muscle Spasm Furosemide [Lasix TAB] 40 mg PO BID #60 tablet hydrALAZINE [Apresoline TAB] 25 mg PO Q8HR #90 tablet Lisinopril [Zestril] 40 mg PO DAILY #30 tablet
[2017-02-24] MEDS ORDERED: DUONEB *Not for PRN Use IH SCH (14:00)
[2017-02-24] MEDS ORDERED: APRESOLINE PO SCH (14:00)
== END 2017-02-24 14:40 | disposition home or self-care (01) | DRG 291 ==
LOC: ED 16:47 → 4A 02-22 05:17
PROVIDERS: ADMIT Internal Medicine; ATTEND Internal Medicine
DX: I11.0 Hypertensive heart disease with heart failure (principal); J96.00 Acute respiratory failure, unspecified whether with hypoxia or hypercapnia; M62.82 Rhabdomyolysis; Z68.42 Body mass index [BMI] 45.0-49.9, adult; I25.10 Atherosclerotic heart disease of native coronary artery without angina pectoris; Z91.19 Patient's noncompliance with other medical treatment and regimen; I42.9 Cardiomyopathy, unspecified; Z82.49 Family history of ischemic heart disease and other diseases of the circulatory system; Z79.82 Long term (current) use of aspirin; F17.200 Nicotine dependence, unspecified, uncomplicated; E66.01 Morbid (severe) obesity due to excess calories; I50.23 Acute on chronic systolic (congestive) heart failure; I16.0 Hypertensive urgency
CPT/HCPCS: 36415; 70450; 71010; 78452; 80048; 82550; 82553; 82962; 84484; 85025; 93005; 93010; 93017; 93306; 94640; 99285; 99406; A9270-GY; A9502; J0360; J1940; J2785